=== PATIENT | female | born 1985 | race Caucasian/White ===

== ENCOUNTER 2023-03-09 09:23 | Observation (INO) | payer BC ==
[2023-03-08 08:24] VITALS: BMI 52.0
[2023-03-09] MEDS ORDERED: Oxymetazoline HCl 0.05% ( 15 ML ) ONE ×2 (11:45→12:53)
[2023-03-09] MEDS ORDERED: Midazolam HCl 2 mg/2 ml Vial ONE (12:46)
[2023-03-09] MEDS ORDERED: PROPOFOL 20 ML ONE (12:46)
[2023-03-09] MEDS ORDERED: Fentanyl 250 MCG/5 ML VIAL ONE (12:46)
[2023-03-09] MEDS ORDERED: Rocuronium Bromide 10 MG/ML (10ML VIAL) ONE (12:47)
[2023-03-09] MEDS ORDERED: Ondansetron PF 4 MG/2 ML Vial ONE ×2 (12:47→13:34)
[2023-03-09] MEDS ORDERED: Dexamethasone 20 MG/5 ML VIAL ONE (12:47)
[2023-03-09] MEDS ORDERED: Acetaminophen 325 MG TAB PO PRN (12:59)
[2023-03-09] MEDS ORDERED: traMADol HCl 50 MG TAB PO PRN (13:02)
[2023-03-09] MEDS ORDERED: Oxymetazoline HCl 0.05% ( 15 ML ) NASAL PRN (13:15)
[2023-03-09] MEDS ORDERED: CEFAZOLIN 1 GM VIAL ONE (13:25)
[2023-03-09] MEDS ORDERED: EPINEPHrine 1 MG/ML AMP ONE (13:38)
[2023-03-09] MEDS ORDERED: Lidocaine 1% w/Epinephrine 1:100K 20 ML VIAL ONE (13:38)
[2023-03-09] MEDS ORDERED: ePHEDrine Sulfate 50 MG/10 ML VIAL ONE (13:44)
[2023-03-09] MEDS ORDERED: Mupirocin 2% Ointment 22 GM Tube ONE (14:02)
[2023-03-09] MEDS ORDERED: Glycopyrrolate 0.2 MG/ML 5 ML SYRINGE ONE (14:56)
[2023-03-09] MEDS ORDERED: fentaNYL 50 mcg/mL 1 mL Vial ONE (15:45)
[2023-03-09] MEDS ORDERED: hydrALAZINE 20 MG/ML VIAL ONE (16:11)
[2023-03-09] MEDS: Sodium Chloride 0.65% Nasal 44 ML BOT EA NARE SCH ×2 (18:03→22:00)
[2023-03-09] MEDS ORDERED: LISDEXAMFETAMINE DIMESYLATE 40 MG PO SCH (21:00)
[2023-03-09] MEDS ORDERED: Escitalopram Oxalate 20 mg Tablet PO SCH (21:00)
[2023-03-10] MEDS: Sodium Chloride 0.65% Nasal 44 ML BOT EA NARE SCH (07:47)
[2023-03-10 08:29] VITALS: BP 122/84; TEMP 98.2
== END 2023-03-10 10:30 | disposition home or self-care (01) ==
LOC: CSHSDC 09:23 → CSHTELE 12:59
PROVIDERS: ADMIT Otolaryngology Otolaryngic Allergy; ATTEND Otolaryngology Otolaryngic Allergy
PROC: 09JK8ZZ Inspection of Nasal Mucosa and Soft Tissue, Via Natural or Artificial Opening Endoscopic (ICD-10-PCS; principal; 2023-03-10)
PROC: 09BM8ZZ Excision of Nasal Septum, Via Natural or Artificial Opening Endoscopic (ICD-10-PCS; 2023-03-10)
PROC: 09BL8ZZ Excision of Nasal Turbinate, Via Natural or Artificial Opening Endoscopic (ICD-10-PCS; 2023-03-10)
PROC: 09BR8ZZ Excision of Left Maxillary Sinus, Via Natural or Artificial Opening Endoscopic (ICD-10-PCS; 2023-03-10)
PROC: 09BQ8ZZ Excision of Right Maxillary Sinus, Via Natural or Artificial Opening Endoscopic (ICD-10-PCS; 2023-03-10)
PROC: 09BV8ZZ Excision of Left Ethmoid Sinus, Via Natural or Artificial Opening Endoscopic (ICD-10-PCS; 2023-03-10)
DX: J34.3 Hypertrophy of nasal turbinates (principal); J32.9 Chronic sinusitis, unspecified; J34.2 Deviated nasal septum; G47.33 Obstructive sleep apnea (adult) (pediatric); G43.909 Migraine, unspecified, not intractable, without status migrainosus; J42 Unspecified chronic bronchitis; F41.9 Anxiety disorder, unspecified; E66.9 Obesity, unspecified; J45.909 Unspecified asthma, uncomplicated; Z79.899 Other long term (current) drug therapy; Z88.5 Allergy status to narcotic agent
CPT/HCPCS: 88305; 88311; C2625; J0171; J0360; J0690; J1100; J2250; J2405; J2704; J3010